=== PATIENT | male | born 1940 | race Caucasian/White ===

== ENCOUNTER 2017-06-25 11:13 | Emergency (ER) | payer MEDICARE, BC ==
[2017-06-25 12:18] LABS: HEMATOCRIT 32.4 % (42.0-54.0); HEMOGLOBIN 11.1 g/dL (13.5-17.5); LYMPHOCYTES 20.6 % (15-50); MCH 29.1 pg (26.0-34.0); MCHC 34.3 g/dL (31.0-37.0); MCV 84.8 fL (80.0-100.0); MEAN PLATELET VOLUME 9.6 fL (7.4-10.4); NEUTROPHILS 64.6 % (40-80); PLATELET COUNT 225 10x3/uL (130-400); RBC 3.82 10x6/uL (4.20-6.10); RDW 13.5 % (11.5-14.5); WBC 4.4 10x3/uL (4.8-10.8)
[2017-06-25 12:38] LABS: ALBUMIN 3.5 g/dL (3.4-5.0); ALKALINE PHOSPHATASE 75 U/L (46-116); ALT (SGPT) 20 U/L (10-68); BILIRUBIN - TOTAL 0.37 mg/dL (0.2-1.3); CALC OSMOLALITY 265 mosm/kg (275-300); CALCIUM 8.5 mg/dL (8.5-10.1); CARBON DIOXIDE 28.9 mmol/L (21.0-32.0); CHLORIDE - SERUM 96 mmol/L (98-107); CREATININE - SERUM 1.4 mg/dL (0.6-1.3); GLUCOSE 89 mg/dL (74-106); POTASSIUM - SERUM 3.2 mmol/L (3.5-5.1); PROTEIN - SERUM 7.7 g/dL (6.4-8.2); SODIUM 131 mmol/L (136-145); UREA NITROGEN 24 mg/dL (7-18); eGFR NON AFRICAN AMERICAN 52 mL/min (90-120)
[2017-06-25 12:41] LABS: TROPONIN-I < 0.017 ng/mL (0.000-0.060)
== END 2017-06-25 15:25 | disposition home or self-care (01) ==
LOC: D.ER 11:13
PROVIDERS: Physician Assistant
DX: R55 Syncope and collapse (principal); R07.81 Pleurodynia; R05 Cough; I95.9 Hypotension, unspecified; R00.1 Bradycardia, unspecified; E87.6 Hypokalemia; I10 Essential (primary) hypertension; F17.200 Nicotine dependence, unspecified, uncomplicated; I44.0 Atrioventricular block, first degree